=== PATIENT | female | born 1970 | race Two or more races ===

== ENCOUNTER 2021-06-27 06:39 | Day surgery (SDC) | payer OTHER ==
[~2021-06-27 06:39] MED LIST: TAMOXIFEN CITRA20 MG PO
== END 2021-06-27 14:00 | disposition home or self-care (01) ==
LOC: CIR.AMB 06:39
PROVIDERS: ATTEND Specialist
DX: N72 Inflammatory disease of cervix uteri (principal); N84.0 Polyp of corpus uteri; Z20.822 Contact with and (suspected) exposure to COVID-19; Z88.8 Allergy status to other drugs, medicaments and biological substances; J45.909 Unspecified asthma, uncomplicated; G43.909 Migraine, unspecified, not intractable, without status migrainosus; Z85.3 Personal history of malignant neoplasm of breast; Z92.21 Personal history of antineoplastic chemotherapy